=== PATIENT | female | born 1980 | race Caucasian/White ===

== ENCOUNTER 2016-05-04 18:38 | Inpatient (IN) | payer OTHER ==
[~2016-05-04] VITALS: Ht 162.6 cm; Wt 76.8 kg
[2016-05-04 20:52] LABS: BASOPHILS 0.1 % (0.0-2.0); EOSINOPHILS 0.2 % (0-7); HEMATOCRIT 41.3 % (36.0-48.0); HEMOGLOBIN 14.4 g/dL (12-16); IMMATURE GRANULOCYTES 0.6 % (0-5); LYMPHOCYTES 8.4 % (15-50); MCH 30.5 pg (26.0-34.0); MCHC 34.9 g/dL (31.0-37.0); MCV 87.5 fL (80.0-100.0); MEAN PLATELET VOLUME 10.5 fL (7.4-10.4); MONOCYTES 4.2 % (2-11); NEUTROPHILS 86.5 % (40-80); PLATELET COUNT 270 10x3/uL (130-400); RBC 4.72 10x6/uL (4.00-5.40); RDW 12.9 % (11.5-14.5); WBC 19.2 10x3/uL (4.8-10.8)
[2016-05-04 21:17] LABS: ALBUMIN 3.2 g/dL (3.4-5.0); ALKALINE PHOSPHATASE 116 U/L (46-116); ALT (SGPT) 33 U/L (10-68); BILIRUBIN - TOTAL 0.38 mg/dL (0.2-1.3); CALC OSMOLALITY 275 mosm/kg (275-300); CALCIUM 8.6 mg/dL (8.5-10.1); CARBON DIOXIDE 26.2 mmol/L (21.0-32.0); CHLORIDE - SERUM 100 mmol/L (98-107); CREATININE - SERUM 0.8 mg/dL (0.6-1.3); GLUCOSE 92 mg/dL (74-106); POTASSIUM - SERUM 3.3 mmol/L (3.5-5.1); PROTEIN - SERUM 7.1 g/dL (6.4-8.2); SODIUM 139 mmol/L (136-145); UREA NITROGEN 7 mg/dL (7-18); eGFR NON AFRICAN AMERICAN 86 mL/min (90-120)
[2016-05-04 23:20] LABS: UDS - AMPHET NEGATIVE QUAL (NEGATIVE); UDS - BARB NEGATIVE QUAL (NEGATIVE); UDS - BENZO NEGATIVE QUAL (NEGATIVE); UDS - COCAINE NEGATIVE QUAL (NEGATIVE); UDS - METH NEGATIVE QUAL (NEGATIVE); UDS - OPIATE NEGATIVE QUAL (NEGATIVE); UDS - PCP NEGATIVE QUAL (NEGATIVE); UDS - THC NEGATIVE QUAL (NEGATIVE)
--- NOTE | 2016-05-05 02:10 | NUR ---
ARRIVED TO FLOOR VIA WHEELCHAIR, ACCOMPANIED BY HOSPITAL STAFF. ORIENTED TO FLOOR, VS OBTAINED. PLACED ON TELEMETRY. CALL LIGHT IN REACH. PLAN OF CARE DISCUSSED. WILL CONTINUE TO MONITOR. SEE NURSE ASSESSMENT.
[2016-05-05] MEDS ORDERED: GABAPENTIN100 MG PO (02:43)
[2016-05-05] MEDS ORDERED: BUPRENORPHIN-N1 EACH SL (02:43)
[2016-05-05 03:16] VITALS: BP 125/72; Ht 162.6 cm; Wt 76.8 kg
[2016-05-05 05:41] LABS: BASOPHILS 0.1 % (0.0-2.0); EOSINOPHILS 0.1 % (0-7); HEMATOCRIT 34.5 % (36.0-48.0); HEMOGLOBIN 11.9 g/dL (12-16); IMMATURE GRANULOCYTES 0.4 % (0-5); LYMPHOCYTES 9.2 % (15-50); MCH 30.3 pg (26.0-34.0); MCHC 34.5 g/dL (31.0-37.0); MCV 87.8 fL (80.0-100.0); MEAN PLATELET VOLUME 10.5 fL (7.4-10.4); MONOCYTES 4.2 % (2-11); PLATELET COUNT 247 10x3/uL (130-400); RBC 3.93 10x6/uL (4.00-5.40); RDW 13.1 % (11.5-14.5); WBC 16.6 10x3/uL (4.8-10.8)
[2016-05-05 05:47] LABS: ALKALINE PHOSPHATASE 84 U/L (46-116); BILIRUBIN - TOTAL 0.27 mg/dL (0.2-1.3); CALC OSMOLALITY 277 mosm/kg (275-300); CALCIUM 7.8 mg/dL (8.5-10.1); CHLORIDE - SERUM 104 mmol/L (98-107); CREATININE - SERUM 0.8 mg/dL (0.6-1.3); GLUCOSE 113 mg/dL (74-106); POTASSIUM - SERUM 3.1 mmol/L (3.5-5.1); PROTEIN - SERUM 6.1 g/dL (6.4-8.2); SODIUM 140 mmol/L (136-145); UREA NITROGEN 6 mg/dL (7-18); eGFR NON AFRICAN AMERICAN 86 mL/min (90-120)
[2016-05-05 05:50] LABS: ALBUMIN 2.3 g/dL (3.4-5.0); ALT (SGPT) 24 U/L (10-68)
[2016-05-05 08:49] VITALS: BP 120/60
--- NOTE | 2016-05-05 10:02 | NUR ---
INTRODUCED MYSELF TO PT PRIMARY RN FOR TODAYS SHIFT. PT IS ALERT AND ORIENTED RESTING COMFORTABLY IN BED. RR NONLABORED WITH NC @2L IN PLACE. PTS L.SIDE LUNGS ARE CRACKLING ALL THROUGHOUT. R.SIDE ARE CLEAR WITH DIMINISHED LOWER. PT IS REQUESTING A NICOTENE PATCH FOR SMOKING CESSATION. CALLED AND REC'D ORDERS. PROVIDED PT WITH FRESH ICE WATER. PT HAS R.BREAST PIV WITH DRSG CDI AND SWAB CAPS IN USE, INFUSING NS @100ML/HR. PT DENIES ANY CURRENT NEEDS. CL IN REACH, WILL CPOC.
--- NOTE | 2016-05-05 11:25 | NUR ---
NICOTENE PATCH APPLIED TO R.SHOULDER, DATED AND INITIALED. PT RESTING QUIETLY IN BED, DENIES ANY PAIN OR CURRENT NEEDS. WILL CPOC.
[2016-05-05 12:43] VITALS: BP 103/53
[2016-05-05 17:19] VITALS: BP 105/58
--- NOTE | 2016-05-05 18:45 | NUR ---
SCD REFUSED, PATIENT IS UP AD AG
--- NOTE | 2016-05-05 20:24 | NUR ---
PT RESTING IN BED. ALERT/ORIENTED. IV TO RIGHT BREAST WITH NS @ 100ML/HR. O2 @ 2.5ML/HR. SR PER TELEMETRY. DENIES NEEDS AT THIS TIME. SEE ASSESSMENT. CPOC.
[2016-05-05 21:08] VITALS: BP 104/64
--- NOTE | 2016-05-05 21:31 | NUR ---
HS MEDS GIVEN. REQUESTED MOTRIN FOR HEADACHE GIVEN. IVF INFUSING. REVIEWED PLAN OF CARE. WILL MONITOR.
[2016-05-06 00:07] VITALS: BP 118/71
[2016-05-06 04:15] VITALS: BP 110/70
[2016-05-06 05:14] LABS: BASOPHILS 0.2 % (0.0-2.0); HEMATOCRIT 35.8 % (36.0-48.0); HEMOGLOBIN 12.2 g/dL (12-16); IMMATURE GRANULOCYTES 0.9 % (0-5); LYMPHOCYTES 14.1 % (15-50); MCH 30.1 pg (26.0-34.0); MCHC 34.1 g/dL (31.0-37.0); MCV 88.4 fL (80.0-100.0); MEAN PLATELET VOLUME 10.2 fL (7.4-10.4); MONOCYTES 5.7 % (2-11); NEUTROPHILS 78.1 % (40-80); PLATELET COUNT 244 10x3/uL (130-400); RBC 4.05 10x6/uL (4.00-5.40); RDW 13.3 % (11.5-14.5); WBC 15.3 10x3/uL (4.8-10.8)
[2016-05-06 05:32] LABS: CALC OSMOLALITY 277 mosm/kg (275-300); CALCIUM 8.1 mg/dL (8.5-10.1); CARBON DIOXIDE 25.9 mmol/L (21.0-32.0); CHLORIDE - SERUM 105 mmol/L (98-107); CREATININE - SERUM 0.6 mg/dL (0.6-1.3); GLUCOSE 92 mg/dL (74-106); MAGNESIUM - SERUM 1.8 mg/dL (1.8-2.4); POTASSIUM - SERUM 3.1 mmol/L (3.5-5.1); SODIUM 141 mmol/L (136-145); UREA NITROGEN 5 mg/dL (7-18); eGFR NON AFRICAN AMERICAN > 90 mL/min (90-120)
--- NOTE | 2016-05-06 07:31 | NUR ---
DENIES NEEDS AT PRESENT TIME. ON HEART MONITOR SHOWING SR, HR 82. ON 2L PER NC. NS INFUSING TO RIGHT BREAST AT 50 CC/HR. ON EP, WILL MONITOR LAB. K+ IS 3.1 THIS AM, WILL SUPPLEMENT. WILL CONTINUE TO MONITOR.
[2016-05-06 08:23] VITALS: BP 106/63
[2016-05-06 12:17] VITALS: BP 113/66
--- NOTE | 2016-05-06 14:16 | NUR ---
PATIENT OUT OF SHOWER, RIGHT BREAST IV IS STARTING TO "HURT AND SWELL". Erickson LEON RN TO TRY AND RE-SITE IV.
--- NOTE | 2016-05-06 14:39 | NUR ---
IV RE-SITED TO RIGHT HAND X 2 STICKS WITH 22 G PER Erickson LEON RN. IV TO RIGHT BREAST REMOVED WITH CATH TIP INTACT.
[2016-05-06 15:15] VITALS: BP 107/68
--- NOTE | 2016-05-06 19:03 | NUR ---
SITTING UP IN BED, AAOX3, SKIN WARM AND DRY, RESP UNLABORED, IV PATENT TO RIGHT HAND, O2@2LNC, FAMILY AT BEDSIDE, MOOD PLEASANT, NO DISTRESS NOTED
[2016-05-06 21:26] VITALS: BP 117/73
[2016-05-07 00:30] VITALS: BP 126/68
--- NOTE | 2016-05-07 00:53 | NUR ---
[employer]INE[employer] OFFICER AT BEDSIDE FOR VS. NEEDS ADDRESSED, CALL LIGHT IN REACH. WILL CONT TO MONITOR.
[2016-05-07 04:30] VITALS: BP 118/67
[2016-05-07 05:01] LABS: ALBUMIN 2.2 g/dL (3.4-5.0); ALKALINE PHOSPHATASE 101 U/L (46-116); ALT (SGPT) 20 U/L (10-68); BILIRUBIN - TOTAL 0.29 mg/dL (0.2-1.3); CALC OSMOLALITY 277 mosm/kg (275-300); CALCIUM 8.4 mg/dL (8.5-10.1); CARBON DIOXIDE 23.6 mmol/L (21.0-32.0); CHLORIDE - SERUM 106 mmol/L (98-107); CREATININE - SERUM 0.5 mg/dL (0.6-1.3); GLUCOSE 106 mg/dL (74-106); POTASSIUM - SERUM 3.5 mmol/L (3.5-5.1); PROTEIN - SERUM 6.7 g/dL (6.4-8.2); SODIUM 141 mmol/L (136-145); UREA NITROGEN 4 mg/dL (7-18); eGFR NON AFRICAN AMERICAN > 90 mL/min (90-120)
--- NOTE | 2016-05-07 06:44 | NUR ---
RESTING QUIETLY IN BED, NO DISTRESS NOTED
[2016-05-07 06:46] LABS: BASOPHILS 0.1 % (0.0-2.0); EOSINOPHILS 0.8 % (0-7); HEMATOCRIT 34.4 % (36.0-48.0); HEMOGLOBIN 11.9 g/dL (12-16); IMMATURE GRANULOCYTES 1.9 % (0-5); LYMPHOCYTES 12.7 % (15-50); MCH 30.5 pg (26.0-34.0); MCHC 34.6 g/dL (31.0-37.0); MCV 88.2 fL (80.0-100.0); MEAN PLATELET VOLUME 9.9 fL (7.4-10.4); MONOCYTES 7.5 % (2-11); PLATELET COUNT 259 10x3/uL (130-400); RDW 13.5 % (11.5-14.5); WBC 14.5 10x3/uL (4.8-10.8)
--- NOTE | 2016-05-07 07:19 | NUR ---
AM ROUNDING DONE WITH PATIENT APPEARING TO BE ALSEEP. RESP ARE EVEN AND NON LABORED. ON HEART MONITOR SHOWING SR, HR 87. ON 2L PER NC. RIGHT HAND SEEN WITH NS INFUSING AT 50 CC/HR. K+ IS 3.5 THIS AM. WILL CONTINUE TO MONITIR.
[2016-05-07 08:13] VITALS: BP 114/71
--- NOTE | 2016-05-07 11:59 | NUR ---
PATIENT IS PLACED IN TEMPORARY DROPLET ISOLATION FOR STAPH IN SPUTUM, TO R/O MRSA. THIS IS EXPLAINED TO THE PATIENT IN REGARDS OF GOWN, GLOVE, AND MASK AND THAT FAMILY AND STAFF NEED TO BE WEARING THIS.
[2016-05-07 12:43] VITALS: BP 126/69
[2016-05-07 16:00] VITALS: BP 113/69
--- NOTE | 2016-05-07 16:54 | NUR ---
FAMILY AT BEDSIDE, EXPLAINED TO THEM FOR THE DROPLET ISOLATION. WILL CONTINUE TO MONITOR.
--- NOTE | 2016-05-07 20:18 | NUR ---
INITIAL ROUNDS COMPLETED AT 1915 HRS. PT DENIED ANY DISCOMFORT. ASSESSMENT COMPLETED AT 1940 HRS. VSS. SR PER CM HR 75. IV TO R HAND WITH NS AT 50CC/HR. IV PATENT. LUNGS DIMINISHED IN LLL. FAMILY AT BEDSIDE. SR UP X2, CALL LIGHT WITHIN REACH.
[2016-05-07 21:24] VITALS: BP 119/77
--- NOTE | 2016-05-07 21:54 | NUR ---
EKG DONE. SCD'S PLACED PER ORDER. PT INFORMED OF NPO AFTER MIDNIGHT FOR AM U/S OF ABD. INFORMED OF CARDIOLOGY AND CARDIOVASCULAR CONSULTS IN AM. WILL CONTINUE TO MONITOR.
--- NOTE | 2016-05-07 21:57 | NUR ---
PT WATCHING TV. NAD. WILL CONTINUE TO MONITOR.
--- NOTE | 2016-05-08 00:09 | NUR ---
PT RESTING WITH EYES CLOSED. RESP EVEN AND REGULAR. SR UP X2, CALL LIGHT WITHIN REACH.
[2016-05-08 00:30] VITALS: BP 120/78
--- NOTE | 2016-05-08 02:22 | NUR ---
PT RESTING WITH EYES CLOSED. RESP EVEN AND REGULAR. SR UP X2, CALL LIGHT WITHIN REACH.
--- NOTE | 2016-05-08 04:18 | NUR ---
PT AWAKE; DENIES ANY DISCOMFORT. WILL CONTINUE TO MONITOR.
[2016-05-08 04:22] LABS: BASOPHILS 0.2 % (0.0-2.0); EOSINOPHILS 1.5 % (0-7); HEMATOCRIT 35.3 % (36.0-48.0); HEMOGLOBIN 12.2 g/dL (12-16); IMMATURE GRANULOCYTES 4.9 % (0-5); LYMPHOCYTES 18.5 % (15-50); MCH 30.2 pg (26.0-34.0); MCHC 34.6 g/dL (31.0-37.0); MCV 87.4 fL (80.0-100.0); MEAN PLATELET VOLUME 10.6 fL (7.4-10.4); MONOCYTES 8.8 % (2-11); NEUTROPHILS 66.1 % (40-80); PLATELET COUNT 264 10x3/uL (130-400); RBC 4.04 10x6/uL (4.00-5.40); RDW 13.3 % (11.5-14.5); WBC 11.6 10x3/uL (4.8-10.8)
[2016-05-08 04:30] VITALS: BP 107/67
[2016-05-08 04:54] LABS: ALBUMIN 2.1 g/dL (3.4-5.0); ALKALINE PHOSPHATASE 100 U/L (46-116); ALT (SGPT) 16 U/L (10-68); BILIRUBIN - TOTAL 0.26 mg/dL (0.2-1.3); CALC OSMOLALITY 275 mosm/kg (275-300); CALCIUM 8.5 mg/dL (8.5-10.1); CARBON DIOXIDE 18.8 mmol/L (21.0-32.0); CHLORIDE - SERUM 105 mmol/L (98-107); CREATININE - SERUM 0.4 mg/dL (0.6-1.3); GLUCOSE 105 mg/dL (74-106); POTASSIUM - SERUM 3.6 mmol/L (3.5-5.1); PROTEIN - SERUM 6.8 g/dL (6.4-8.2); SODIUM 139 mmol/L (136-145); eGFR NON AFRICAN AMERICAN > 90 mL/min (90-120)
[2016-05-08 04:55] LABS: UREA NITROGEN 7 mg/dL (7-18)
--- NOTE | 2016-05-08 05:55 | NUR ---
RYDER FROM [facility] CALLED. STATED NO MRSA IN SPUTUM AND MAY DC ISOLATION.
--- NOTE | 2016-05-08 06:09 | NUR ---
VSS THROUGHOUT NIGHT. SR PER CM. PT DENIED ANY DISCOMFORT. NEEDS MET; WILL CONTINUE TO MONITOR.
--- NOTE | 2016-05-08 08:05 | NUR ---
PATIENT COMPLAINS OF HEADACHE, TYLENOL WAS GIVEN. RIGHT HAND SEEN WITH NS INFUSING AT 50 CC/HR. ON ROOM AIR. ON HEART ONITOR SHWOING SR, HR 78. PATIENT IS OUT OF DROPLET ISOLATION THIS AM. ENCORGARED PATIENT TO GET OUT OF BED AND AMBULATE IN HALLWAY AND ROOM THIS AM. STATES THAT SHE WILL. WILL CONTINUE TO MONITOR.
[2016-05-08 08:32] VITALS: BP 117/63
--- NOTE | 2016-05-08 10:56 | NUR ---
CALLED AND TALKED TO LYNDON AT DR VILLARREAL'S OFFICE R/T CHEST XRAY FOR TODAY. SHE STATES THAT SHE WILL TELL HIM AND WILL CALL US BACK.
--- NOTE | 2016-05-08 12:05 | NUR ---
DOING WELL, DENIES NEEDS AT PRESENT TIME. WILL CONTINUE TO MONITOR.
[2016-05-08] MEDS ORDERED: OMNICEF300 MG PO (12:17)
[2016-05-08 12:30] VITALS: BP 112/72
--- NOTE | 2016-05-08 13:32 | NUR ---
Patient Name: SILVINA FLORES Admission Status: ER Accout number: [id number] Admission Date: 05-04-2016 : 1980 Admission Diagnosis: Attending: DARLYN Current LOS: 4 Anticipated DC Date: 05-08-2016 Planned Disposition: Home Primary Insurance: [employer] [facility] Discharge Planning Comments: * Is the patient Alert and Oriented? Yes 0 * How many steps to enter\exit or inside your home? O / 10 IN 0 * PCP DR. EVA DICK AT [facility] 0 * Pharmacy [facility] OR [facility] 0 * Preadmission Environment Home with Family 0 * ADLs Independent 0 * Equipment None 0 * Other Equipment NO MEDICAL EQUIPMENT PROVIDER PREFERENCE 0 * List name and contact numbers for known caregivers / representatives who currently or will assist patient after discharge: MIKE FLORES, SPOUSE, 0 * Community resources currently utilized None 0 * Please name any agencies selected above. NONE 0 * Additional services required to return to the preadmission environment? No 0 * Can the patient safely return to the preadmission environment? Yes 0 * Has this patient been hospitalized within the prior 30 days at any hospital? No 0 CM MET WITH PT IN ROOM TO DISCUSS DISCHARGE PLANNING AND NEEDS. PT REPORTS LIVING AT HOME INDEPENDENTLY WITH HER SPOUSE. PT HAS NO MEDICAL EQUIPMENT AND NO OUTSIDE SERVICES ASSISTING IN THE HOME. CM DISCUSSED AVAILABILITY OF HOME HEALTH, REHAB SERVICES AND MEDICAL EQUIPMENT. PT DENIES DISCHARGE NEEDS, REPORTS HER SPOUSE WILL PICK HER UP FOR DISCHARGE HOME. Medication Nurse: Nahum Ma
--- NOTE | 2016-05-08 13:53 | NUR ---
9237-INFORMED PATIENT THAT SHE WAS BEING DISCHARGED. COMPLAINTS TO STUDENT NURSE OF NAUSEA. ADRIÁNFRAN GIVEN SLOW IVP. WILL MONITOR LITTLE LONGER.
--- NOTE | 2016-05-08 16:55 | NUR ---
VERBAL AND WRITTEN DISCHARGE INSTUCTIONS GIVEN TO PATIENT AND SPOUSE. SALINE LOCK REMOVED WITH CATH TIP INTACT. DISCHARGED HOME VIA WHEELCHAIR.
--- NOTE | 2016-05-09 19:19 | HP ---
PATIENT: SILVINA FLORES MEDICAL RECORD: [id number] ACCOUNT: [id number] LOCATION:[address] : [birth year] ADMISSION DATE: 05/04/16 HISTORY AND PHYSICAL EXAMINATION Admission History and Physical HISTORY OF PRESENT ILLNESS: A 35-year-old female, presented to the Emergency Room with fever, chills, shortness of breath. PAST MEDICAL HISTORY: Significant for detox with Suboxone from long-term treatment for chronic pelvic pain with fentanyl, opiates. SOCIAL HISTORY: Admits to daily smoking. PAST SURGICAL HISTORY: Cholecystectomy, 6 laparoscopic surgeries for endometriosis, depression, appendectomy and lysis of adhesions. CURRENT MEDICATIONS: Suboxone 1 p.o. q.i.d., Neurontin 100 mg q.i.d. REVIEW OF SYSTEMS: CONSTITUTIONAL: No acute change in weight or appetite. HEENT: No cephalgia, visual changes, tinnitus, epistaxis or dysphagia. CARDIOVASCULAR: Denies chest pain or palpitations. GASTROINTESTINAL: Denies hematemesis, hematochezia or melena. PULMONARY: Admits cough, shortness of breath. GENITOURINARY: Denies dysuria, denies change in frequency. MUSCULOSKELETAL: No acute changes. ENDOCRINE: Denies polyuria, polydipsia, or polyphagia. PHYSICAL EXAMINATION: VITAL SIGNS: Temperature 100, blood pressure 125/72, heart rate 108, respirations 20, O2 sats 97%. GENERAL: Alert and oriented, no present distress. HEENT: Head is normocephalic, atraumatic. Eyes: Pupils equal, round, reactive. Ears: Canals patent, TMs are intact. Nose: Nares patent without drainage. Throat: No erythema, no exudates. NECK: Supple. No lymphadenopathy, no JVD. HEART: Regular, tachycardic. LUNGS: Diminished breath sounds at the bases, right greater than left. ABDOMEN: Soft, nontender. Bowel sounds all 4 quadrants. EXTREMITIES: Present times 4, no edema. NEUROLOGIC: Intact. SKIN: Warm, dry. No rash. LABORATORY DATA: CBC: White count 16,600, hemoglobin 11.9, hematocrit 34.5, platelets 247. Chemistry shows a sodium of 140, potassium 3.1, chloride 104, bicarbonate 25, BUN 6, creatinine 0.8 and glucose 113. T-bili 0.27, AST 15, ALT 24, alkaline phosphatase 84. Lactic acid 1.4. ABG: pH 7.435, pCO2 of 34.4, pO2 of 68. Urine drug screen negative. DIAGNOSTIC IMAGING: Chest x-ray, single view consolidation left lung base consistent with a pneumonia. ASSESSMENT AND PLAN: HISTORY AND PHYSICAL [id number] SILVINA FLORES 1. Febrile pneumonia, community acquired. IV antibiotics. 2. Nicotine dependence with the above and the consolidation left lung base. We will obtain CT of the chest without. 3. Opiate dependence for prescribed medications. Continue Suboxone as prescribed by her primary at [facility]. Supportive care. traffic ii manager consult for discharge planning when stable. 4. Hypokalemia. Electrolyte protocol. DIET: As tolerated. TRANSINT:[id number] Voice Confirmation ID: [id number] DOCUMENT ID: [id number] IVANNA HUMPHREY DO at 1920 CC: [id number] DICTATION DATE: 05/05/16 0832 LAST CODE STRIPER: 05/05/16 0908 DIS IN 05/08/16 [id number] [place] [address]
== END 2016-05-08 17:00 | disposition home or self-care (01) | DRG 194 ==
LOC: D.ER 18:38 → D.M2 23:40
PROVIDERS: Emergency Medicine; Family Medicine; Physician Assistant; ADMIT Family Medicine
DX: J18.9 Pneumonia, unspecified organism (principal); F11.20 Opioid dependence, uncomplicated; J01.90 Acute sinusitis, unspecified; E87.6 Hypokalemia; F17.200 Nicotine dependence, unspecified, uncomplicated